=== PATIENT | female | born 1970 | race Caucasian/White ===

== ENCOUNTER → 2016-11-21 | Outpatient (CLI) | payer BC | LOC: RAD 14:23 | PROVIDERS: ATTEND Family Medicine | DX: Z12.39 Encounter for other screening for malignant neoplasm of breast (principal) | CPT/HCPCS: 77067 ==

== ENCOUNTER → 2017-01-12 | Outpatient (CLI) | payer BC ==
--- NOTE | 2017-01-12 16:50 | MG ---
HISTORY: Abnormal left breast mammography with new left breast nodule Study: Left breast digital diagnostic mammography with CAD and left breast ultrasound. Comparison: November 21, 2016 Findings: Mammogram: Spot magnification and mL views of the left breast were obtained. At 9 o'clock, there is a dominant partially obscured and partially circumscribed 1 cm hyperdense nodule with additional under lying overall stable nodules which will be correlated with ultrasound. There is no architectural dist ortion. No suspicious clustered microcalcifications are identified. Ultrasound: Multiple grayscale and color Doppler images of the 9 o'clock position right breast were o btained. At 9 o'clock 2 cm from the nipple and felt to correspond to the mammographic findings is a h orizontally oriented smoothly marginated and well circumscribed 1 cm anechoic cyst with posterior aco ustical enhancement and no internal Doppler flow most compatible with a benign simple parenchymal cys ts. There are additional sub cm mildly complex cystic nodules felt to correspond to the otherwise sta ble background of nodular glandular parenchyma mammographically. No suspicious cystic or solid nodule is seen to warrant biopsy. IMPRESSION: No radiographic evidence of malignancy. BI-RADS 2. Benign findings. Yearly mammographic imaging is recommended. * 0 (ZERO) - ASSESSMENT INCOMPLETE; ADDITIONAL IMAGING IS NEEDED. * 1/1 (ONE) - NEGATIVE. * 2/II (TWO) - BENIGN FINDINGS. * 3/III (THREE) - PROBABLY BENIGN FINDING; SHORT INTERVAL FOLLOW-UP SUGGESTED. * 4/IV (FOUR) - SUSPICIOUS ABNORMALITY; BIOPSY SHOULD BE CONSIDERED. * 5/V (FIVE) - HIGHLY SUSPICIOUS OF MALIGNANCY; BIOPSY SHOULD BE PERFORMED. * 6/ (SIX) - KNOWN MALIGNANCY. A NEGATIVE X-RAY REPORT SHOULD NOT DELAY BIOPSY IF A DOMINANT OR CLINICALLY SUSPICIOUS MASS IS PRESENT; 4 TO 8 PERCENT OF CANCERS ARE NOT IDENTIFIED BY X-RAY. A NEGA TIVE REPORT MAY REINFORCE THE CLINICAL IMPRESSION. ADENOSIS AND DENSE BREASTS MAY OBSCURE AN UNDERLY ING NEOPLASM. Reported By:
== END ==
LOC: RAD 14:33
PROVIDERS: ATTEND Family Medicine
DX: R92.8 Other abnormal and inconclusive findings on diagnostic imaging of breast (principal); F51.04 Psychophysiologic insomnia
CPT/HCPCS: 76642; 77065

== ENCOUNTER → 2017-08-01 | Outpatient (CLI) | payer BC | LOC: RAD 13:10 | PROVIDERS: ATTEND Family Medicine | DX: N63.0 Unspecified lump in unspecified breast (principal) ==